=== PATIENT | female | born 1995 | race Two or more races ===

== ENCOUNTER 2017-08-07 22:22 | Emergency (ER) | payer MEDICAID ==
[2017-08-07] MEDS ORDERED: ALBUTEROL 3 ML DEYVIAL ONE (22:29)
[2017-08-07] MEDS ORDERED: DEXAMETHASONE 4 MG TAB PO ONE (22:37)
[2017-08-07] MEDS ORDERED: IPRATROPIUM/ALBUTEROL 3 ML DEYVIAL IH ONE (22:37)
[2017-08-07 22:40] VITALS: BP 108/59; O2SAT 98
--- NOTE | 2017-08-07 22:48 | EDPHY ---
H & P Time Seen by Provider: 08/07/17 22:30 HPI/ROS: CHIEF COMPLAINT: Asthma exacerbation HISTORY OF PRESENT ILLNESS: Patient is a 22-year-old female who is 6 weeks who comes to the emergency department complaining of wheezing and shortness of breath. She states that she has developed a sore throat and runny nose over last couple of days. No fevers. Mild dry cough. No abdominal pain. No chest pain. No bleeding. No urinary symptoms. REVIEW OF SYSTEMS: Constitutional: denies: chills, fever, recent illness, recent injury EENTM: denies: blurred vision, double vision, nose congestion Respiratory: See HPI Cardiac: denies: chest pain, irregular heart rate, lightheadedness, palpitations Gastrointestinal/Abdominal: denies: abdominal pain, diarrhea, nausea, vomiting, blood streaked stools Genitourinary: denies: dysuria, frequency, hematuria, pain Musculoskeletal: denies: joint pain, muscle pain Skin: denies: lesions, rash, jaundice, bruising Neurological: denies: headache, numbness, paresthesia, tingling, dizziness, weakness Hematologic/Lymphatic: denies: blood clots, easy bleeding, easy bruising Immunologic/allergic: denies: HIV/AIDS, transplant EXAM: GENERAL: Well-appearing, well-nourished and in no acute distress. HEAD: Atraumatic, normocephalic. EYES: Pupils equal round and reactive to light, extraocular movements intact, sclera anicteric, conjunctiva are normal. ENT: TMs normal, nares patent, oropharynx clear without exudates. Moist mucous membranes. NECK: Normal range of motion, supple without lymphadenopathy or JVD. LUNGS: Minimal expiratory wheezing, no crackles or rhonchi. HEART: Regular rate and rhythm without murmurs, rubs or gallops. ABDOMEN: Soft, nontender, normoactive bowel sounds. No guarding, no rebound. No masses appreciated. BACK: No CVA tenderness, no spinal tenderness, step-offs or deformities EXTREMITIES: Normal range of motion, no pitting or edema. No clubbing or cyanosis. NEUROLOGICAL: Cranial nerves II through XII grossly intact. Normal speech, normal gait. 5/5 strength, normal movement in all extremities, normal sensation PSYCH: Normal mood, normal affect. SKIN: Warm, dry, normal turgor, no visible rashes or lesions. Source: Patient Exam Limitations: No limitations - Medical/Surgical History Hx Asthma: Yes Hx Diabetes: No Hx Cardiac Disease: No Hx Renal Disease: No Hx Cirrhosis: No Hx Alcoholism: No Other PMH: MRSA, Asthma, insomnia, epilepsy - Family History Significant Family History: No pertinent family hx - Social History Smoking Status: Never smoked Alcohol Use: Sober Drug Use: None Constitutional: Initial Vital Signs Temperature (C) 36.9 C 08/07/17 22:25 Heart Rate 98 08/07/17 22:25 Respiratory Rate 18 08/07/17 22:25 Blood Pressure 108/59 L 08/07/17 22:25 O2 Sat (%) 98 08/07/17 22:25 O2 Delivery Mode Room Air Allergies/Adverse Reactions: dermabond Allergy (Intermediate, Uncoded 08/12/16 18:47) Hives Home Medications: Medication Instructions Recorded Proair Hfa Icu (*) 08/12/16 Albuterol 08/07/17 Flovent Diskus 08/07/17 Ipratropium [Atrovent Neb (*)] 0.5 mg IH BID #14 deyvial 08/07/17 Medical Decision Making ED Course/Re-evaluation: Patient is well appearing. Vital signs are stable. I will treat her with DuoNeb and Decadron. The Decadron may be a 1 time dose. We will continue to observe. 11:05 p.m. the patient is doing well. She feels completely better after the DuoNeb. She is requesting a prescription for albuterol/Atrovent. She is requesting to go home. She does not wish to have further observation. Differential Diagnosis: Partial list of the Differential diagnosis considered include but were not limited to; asthma exacerbation, upper respiratory tract infection and although unlikely based on the history and physical exam, I also considered pneumonia, bronchitis, sepsis, PE. - Data Points Medications Given: Discontinued Medications Albuterol/Ipratropium (Duoneb) 3 ml IH EDNOW ONE Stop: 08/07/17 22:38 Last Admin: 08/07/17 22:41 Dose: 3 ml Dexamethasone (Decadron) 10 mg PO EDNOW ONE Stop: 08/07/17 22:38 Last Admin: 08/07/17 22:42 Dose: 10 mg Departure - Departure Disposition: Home, Routine, Self-Care Clinical Impression: Exacerbation of asthma Qualifiers: Asthma severity: mild Asthma persistence: intermittent Qualified Code(s): J45.21 - Mild intermittent asthma with (acute) exacerbation Upper respiratory tract infection Qualifiers: URI type: unspecified URI Qualified Code(s): J06.9 - Acute upper respiratory infection, unspecified Condition: Fair Instructions: Ipratropium (By breathing), Asthma (ED), Upper Respiratory Infection (ED) Referrals: KELLI CARR [Primary Care Provider] - As per Instructions Stand Alone Forms: Work Excuse Prescriptions: Ipratropium [Atrovent Neb (*)] 0.5 mg IH BID #14 ozzieial
[2017-08-07 23:02] VITALS: PULSE 90; RESP 16; TEMP 98.1
== END 2017-08-07 23:20 | disposition home or self-care (01) ==
LOC: CED 22:22
DX: O99.511 Diseases of the respiratory system complicating pregnancy, first trimester (principal); J45.21 Mild intermittent asthma with (acute) exacerbation; Z3A.01 Less than 8 weeks gestation of pregnancy